=== PATIENT | male | born 1960 | race Caucasian/White ===

== ENCOUNTER 2016-05-24 04:05 | Emergency (ER) | payer BC ==
[2016-05-24] MEDS ORDERED: NITROGLYCERIN SL TABS 0.4 MG TAB SUBLINGUAL STA (04:39)
[2016-05-24] MEDS ORDERED: ASPIRIN 81 MG CHEW PO STA (04:39)
[2016-05-24 04:54] LABS: Basophils # (A) 0.1 k/uL (0-0.2); Basophils % (A) 1 %; CH 30.3; CHCM 35.2; Eosinophils # (A) 0.1 k/uL (0-0.7); Eosinophils % (A) 2 %; HDW 2.82; Luc # (Auto) 0.18; Luc % (Auto) 2; Lymphocytes # (A) 1.2 k/uL (1.0-4.8); Lymphocytes % (A) 15 %; MCH 28.9 pg (25.0-35.0); MCHC 33.4 g/dL (31.0-37.0); MCV 86.6 fL (80.0-100.0); Mean Platelet Volume 6.8; Monocytes # (A) 0.8 k/uL (0-1.0); Monocytes % (A) 9 %; Neutrophils # (A) 5.7 k/uL (1.3-7.7); Neutrophils % (A) 71 %; RBC 4.84 m/uL (4.30-5.90); RDW 13.5 % (11.5-15.5); WBC (Perox) 8.24
--- NOTE | 2016-05-24 05:01 | XR ---
EXAM: XR Chest, 1 View. CLINICAL HISTORY: Reason: chest pain TECHNIQUE: Frontal view of the chest. COMPARISON: No relevant prior studies available. FINDINGS: Lungs: Unremarkable. No consolidation. Pleural space: Unremarkable. No pneumothorax. Heart: Unremarkable. No cardiomegaly. Mediastinum: Unremarkable. Bones/joints: No acute osseous abnormality. IMPRESSION: No acute cardiopulmonary process.
[2016-05-24 05:05] LABS: ALT 38 U/L (21-72); AST 27 U/L (17-59); Alkaline Phosphatase 80 U/L (38-126); Amylase 44 U/L (30-110); Anion Gap 12 mmol/L; Blood Urea Nitrogen 16 mg/dL (9-20); Carbon Dioxide 26 mmol/L (22-30); Chloride 104 mmol/L (98-107); Glucose 108 mg/dL (74-99); Magnesium 1.9 mg/dL (1.6-2.3); Non-African American GFR(MDRD) >60 (>60 ml/min/1.73 sqM); Potassium 3.7 mmol/L (3.5-5.1); Sodium 142 mmol/L (137-145); Total Bilirubin 0.5 mg/dL (0.2-1.3); Total Protein 7.1 g/dL (6.3-8.2)
[2016-05-24 05:07] LABS: INR 0.9 (<1.1); Partial Thromboplastin Time 24.3 sec (22.0-30.0); Prothrombin Time 9.5 sec (9.0-12.0)
[2016-05-24 05:31] LABS: Creatine Kinase 133 U/L (55-170)
[2016-05-24 05:44] LABS: Creatine Kinase MB 0.9 ng/mL (0.0-2.4); Troponin I <0.012 ng/mL (0.000-0.034)
[2016-05-24 07:33] VITALS: RESP 17
--- NOTE | 2016-05-24 07:45 | ED ---
Chest Pain HPI - General Chief Complaint: Chest Pain Stated Complaint: Chest Pain Time Seen by Provider: 05/24/16 04:21 Source: patient Mode of arrival: ambulatory Limitations: no limitations - History of Present Illness MD Complaint: chest pain -: hour(s) Onset: during rest Pain Location: substernal Pain Radiation: none Severity: moderate Quality: dull Consistency: constant Improves With: nothing Worsens With: nothing - Related Data Allergies Allergy/AdvReac Type Severity Reaction Status Date / Time Sulfa (Sulfonamide Allergy Rash/Hives Verified 05/24/16 04:31 Antibiotics) Review of Systems ROS Statement: Those systems with pertinent positive or pertinent negative responses have been documented in the HPI. ROS Other: All systems not noted in ROS Statement are negative. Constitutional: Denies: fever, chills, weakness Respiratory: Denies: cough, dyspnea Cardiovascular: Reports: chest pain. Denies: palpitations, dyspnea on exertion Gastrointestinal: Denies: abdominal pain, nausea, vomiting Musculoskeletal: Denies: back pain Skin: Denies: rash Neurological: Denies: headache, weakness, numbness EKG Findings - EKG Results: EKG: interpreted by KIANNA, sinus rhythm (76 bpm), normal axis, normal QRS, normal ST/T Past Medical History Past Medical History: Hypertension History of Any Multi-Drug Resistant Organisms: None Reported Past Surgical History: No Surgical Hx Reported Past Psychological History: No Psychological Hx Reported Smoking Status: Never smoker Past Alcohol Use History: Rare Past Drug Use History: None Reported General Exam Limitations: no limitations General appearance: alert, in no apparent distress Head exam: Present: atraumatic, normocephalic Eye exam: Present: normal appearance. Absent: scleral icterus, conjunctival injection ENT exam: Present: normal oropharynx Neck exam: Present: normal inspection Respiratory exam: Present: normal lung sounds bilaterally. Absent: respiratory distress, wheezes, rales, rhonchi, stridor Cardiovascular Exam: Present: regular rate, normal rhythm, normal heart sounds. Absent: systolic murmur, diastolic murmur, rubs, gallop GI/Abdominal exam: Present: soft. Absent: distended, tenderness, guarding, rebound Extremities exam: Present: normal inspection, normal capillary refill. Absent: pedal edema, calf tenderness Back exam: Present: normal inspection. Absent: CVA tenderness (R), CVA tenderness (L) Neurological exam: Present: alert Skin exam: Present: warm, dry, intact, normal color. Absent: rash Course Vital Signs 05/24/16 05/24/16 04:16 07:29 Temperature 97.6 F Pulse Rate 77 77 Respiratory 16 17 Rate Blood Pressure 135/85 122/78 O2 Sat by Pulse 97 97 Oximetry Disposition Clinical Impression: Chest pain Disposition: HOME SELF-CARE Condition: Good Instructions: Chest Pain (ED) Referrals: Benny Hopkins MD [Primary Care Provider] - 1-2 days Jaime Brito MD [STAFF PHYSICIAN] - 1-2 days
[2016-05-24 08:47] VITALS: BP 128/84; PULSE 74; TEMP 97.9
== END 2016-05-24 08:46 | disposition home or self-care (01) ==
LOC: EC 04:05
DX: R07.2 Precordial pain (principal); I10 Essential (primary) hypertension; Z88.2 Allergy status to sulfonamides
CPT/HCPCS: 36415; 71010; 80053; 82150; 82550; 82553; 83690; 83735; 83880; 84484; 85025; 85379; 85610; 85730; 93005; 99285

== ENCOUNTER → 2016-06-05 | Outpatient (CLI) | payer BC ==
--- NOTE | 2016-06-05 12:33 | EST ---
DATE OF SERVICE: 06/05/2016 AGE: 56Y SEX: M HT: 6' WT: 230 lbs. Protocol John: x Other: Stress Stage: 3 Dur. of Exercise: 8:00 *Heart Rate Blood Pressure *Rest: 80 Rest: 145/89 * *Max. Achieved: 146 Maximum BP: 190/89 85% PMHR: 138 100% PMHR: 162 *METS: 9.1 INDICATIONS: Chest pain, shortness of breath. MEDICATIONS: - CLINICAL INFORMATION: Chest pain, hypertension, family history of coronary artery disease, history of smoking cigars for 8 years, quite a long time ago. Family history of diabetes in the father. Patient apparently was seen in the emergency room with some chest pain and relieved by nitroglycerin went home and came back here for a stress test. Patient is not on any lipid-lowering agents. Resting ECG shows sinus rhythm, rate of 80 beats per minute, RI interval of 0.16, QRS 0.08, poor R wave progression in anteroseptal leads. Utilizing a standard John protocol, a symptom-limited treadmill test was performed. Patient exercised for total of 8 minutes, attained a peak heart rate of 146 beats per minute, which is approximately 90% of predicted maximal heart rate, associated with [address] segment depression in the inferolateral leads and also complained of mild depression, which subsided spontaneously without any need for nitroglycerin. ST segment returned to baseline postexercise. It did continue to show flat ST segment depression for a couple of minutes. ASSESSMENT: 1. Baseline rhythm is sinus with normal RI interval, normal QRS, poor R-wave progression in anteroseptal leads. 2. Borderline positive stress test at 90% of predicted maximal heart rate with [address] segment depression and mild chest pressure, consistent with abnormal stress test. 3. Patient has average level of cardiopulmonary fitness as indicated by O2 MAX and METs. 4. Patient attained peak metabolic activity equivalent to 9 METs. 5. Also patient was given sublingual nitroglycerin, advised to try the sublingual nitroglycerin if symptoms recur and if there is a recurrence advised to contact Dr. Hopkins for further evaluation as he sees fit.
== END | disposition home or self-care (01) ==
LOC: RADNMMAIN 10:58
PROVIDERS: ATTEND Family Medicine
DX: R07.89 Other chest pain (principal)
CPT/HCPCS: 93017

== ENCOUNTER → 2024-09-07 | Outpatient (CLI) | payer MEDICARE ==
[~2024-09-07] MED LIST: REGADENOSON 0.4 MG/5 ML SYRINGE IV ONE
--- NOTE | 2024-09-07 13:50 | NM ---
EXAMINATION TYPE: NM stress lexiscan cardiolite DATE OF EXAM: 09/07/2024 COMPARISON: NONE CLINICAL INDICATION: Male, 64 years old with history of R06.09 DYSPNEA; TECHNIQUE: After the intravenous administration of 9.5 mCi Tc 99m Sestamibi - Cardiolite resting SPE CT images acquired 50 minutes post injection. The patient received 0.4mg Lexiscan, 25.2 mCi Tc 99m Sestamibi - Stress images obtained [address] injection FINDINGS: Review of stress and rest SPECT images demonstrates no distinct reversible perfusion abnormality. Fi xed defect septal wall. Gated analysis shows normal wall motion with an estimated left ventricular ej ection fraction of 54 %. IMPRESSION: No scintigraphic evidence for reversible ischemia. [facility], , 09/07/2024 1:48 PM
--- NOTE | 2024-09-07 13:50 | CA ---
Lexiscan Nuclear Stress Test Report Name: Duane Sanders Exam Date: 09/07/2024 10:27 Exam Location: [place] Stress Ht (in): 73 Wt (lb): 235 BSA: 2.30 Ordering Phys: Benny Hopkins MD Referring Phys: DEANNA Technologist: Tank Osuna Age: 64 Gender: M : 1960 Procedure CPT: Indications: R06.09 Dyspnea ICD-10 Codes: Patient History: DIFFICULTY IN BREATHING, HTN, FAMILY HX OF HEART DISEASE, PRIOR CIGAR SMOKER, PRIOR HEART CATH Medications: Meds past 24 hrs: Pretest Chest Pain: STRESS TEST Lexiscan Protocol Exercise Duration (min:sec): 02:[address] Depressions (mm): Angina Score: Dudley Score: Resting HR (bpm): 60 Peak HR (bpm): 93 Resting BP (mmHg): 126 / 76 Peak BP (mmHg): 134 / 75 MPHR: 154 Target HR: 131 % MPHR: 60 METS: 1.0 Total Dose: Peak Dose: Atropine: Double Product: 44665 BP Response: Stress Termination: INFUSION COMPLETE Stress Symptoms: NO SYMPTOMS Stress Summary: ECG ANALYSIS Resting ECG: Sinus rhythm. Normal conduction. No arrhythmias. Nonspecific ST-T abnormality. Stress ECG: No ECG changes from baseline with Lexiscan infusion. CONCLUSIONS No ECG evidence of ischemia with Lexiscan infusion. Nuclear test results to follow. Dr. Kimberly Weaver MD (Electronically Signed) Final Date: 07 September 2024 13:49
== END | disposition home or self-care (01) ==
LOC: RADNMMAIN 08:15
PROVIDERS: ATTEND Family Medicine
DX: I10 Essential (primary) hypertension (principal); R06.09 Other forms of dyspnea; Z82.49 Family history of ischemic heart disease and other diseases of the circulatory system; Z87.891 Personal history of nicotine dependence
CPT/HCPCS: 93017; 78452; A9500